=== PATIENT | male | born 1945 | race Caucasian/White ===

== ENCOUNTER 2019-07-15 22:50 | Inpatient (IN) ==
[2019-07-16] MEDS ORDERED: Ondansetron 4 MG/2 ML VIAL IVP PRN ×2 (00:45→12:43)
[2019-07-16] MEDS ORDERED: Naloxone 0.4 MG/ML INJ IVP PRN ×2 (00:45→12:43)
[2019-07-16] MEDS ORDERED: 0.9 % Sodium Chloride 1,000 ML IVC SCH ×2 (00:45→12:43)
[2019-07-16 01:53] LABS: Basophils % 0.2 %; Eosinophils # 0.1 K/mcL (0.0-0.6); Eosinophils % 0.6 %; Hemoglobin 11.2 g/dL (12.9-16.9); Immature Granulocytes % 1.2 % (0-4); Lymphocytes # 0.5 K/mcL (0.6-4.6); Lymphocytes % 3.6 %; Mean Corpuscular Hemoglobin 30.4 pg (28.0-33.3); Mean Platelet Volume 10.2 fL (9.4-12.4); Monocytes # 1.1 K/mcL (0.0-1.3); Monocytes % 7.2 %; Platelet Count 105 K/mcL (140-400); Red Blood Count 3.68 M/mcL (4.19-5.50); Red Cell Distribution Width 23.1 % (11.5-14.5); Segmented Neutrophils % 87.2 %
[2019-07-16 01:59] LABS: Neutrophils # 13.1 K/mcL (1.6-8.9)
[2019-07-16 02:04] LABS: INR 1.9; Prothrombin Time 21.7 Seconds (9.4-12.1)
[2019-07-16 02:07] LABS: Activated Partial Thrombo Time 28.9 Seconds (26.0-36.0)
[2019-07-16 02:15] LABS: Alanine Aminotransferase 75 Units/L (7-52); Albumin 2.3 g/dL (3.5-5.7); Albumin/Globulin Ratio 0.7 (1.1-2.2); Alkaline Phosphatase 1228 Units/L (34-104); Aspartate Amino Transferase 119 Units/L (13-39); BUN/Creatinine Ratio 36 (6-26); Bilirubin,Total 11.9 mg/dL (0.3-1.0); Blood Urea Nitrogen 48 mg/dL (8-23); Calcium 8.4 mg/dL (8.6-10.3); Carbon Dioxide 25 mEq/L (23-29); Chloride 99 mEq/L (98-107); Globulin 3.2 g/dL (2.4-3.5); Glucose 185 mg/dL (70-105); Magnesium 2.3 mg/dL (1.6-2.6); Osmolality,Calculated 291 (280-300); Potassium 4.6 mEq/L (3.5-5.1); Sodium 132 mEq/L (136-145); Total Protein 5.5 g/dL (6.4-8.9); eGFR For African Americans > 60 (> 60); eGFR For Non-African Americans 52 (> 60)
[2019-07-16 02:25] LABS: Platelet Estimate Slight Decrease (Normal)
[2019-07-16] MEDS ORDERED: *HR* Heparin 5,000 UNIT/ML VIAL SQ SCH ×2 (06:00→18:00)
[2019-07-16] MEDS ORDERED: MetroNIDAZOLE 500 MG/100 ML 500 MG/100 ML BAG IVPB SCH ×2 (08:00→16:00)
[2019-07-16] MEDS ORDERED: Lactulose Oral Soln 20 GM/30 ML UDC PO SCH (09:00)
[2019-07-16] MEDS ORDERED: cefTRIAXone 1,000 MG in Water for inj. (sterile) 10 ML IVP SCH (09:00)
[2019-07-16] MEDS ORDERED: Lactulose 200 GM, Sodium Chloride IRRigation 700 ML RC ONE (12:59)
[2019-07-16] MEDS ORDERED: Lactulose Oral Soln 20 GM/30 ML UDC RC SCH (15:00)
[2019-07-16 19:09] VITALS: BP 90/69
[2019-07-16] MEDS ORDERED: Morphine Sulfate 2 MG/ML SYRINGE IVP ONE (23:35)
[2019-07-16] MEDS ORDERED: Levalbuterol Neb 1.25 MG/3 ML ONE (23:49)
[2019-07-16] MEDS ORDERED: Levalbuterol Neb 1.25 MG/3 ML IH SCH (23:50)
[2019-07-16] MEDS ORDERED: Furosemide 20 MG/2 ML VIAL IVP ONE (23:58)
[2019-07-17] MEDS ORDERED: Atropine Sulfate 1% 40 DROP/2 ML BOTTLE SL PRN (00:11)
[2019-07-17] MEDS ORDERED: *HR* LORazepam Oral Conc 2 MG/ML SL PRN (00:14)
[2019-07-17] MEDS ORDERED: Scopolamine Patch 1.5 MG PATCH.TD72 TD SCH (00:45)
[2019-07-17] MEDS ORDERED: Morphine Sulfate 2 MG/ML SYRINGE IVP PRN (02:00)
[2019-07-17] MEDS ORDERED: cefTRIAXone 1,000 MG in Water for inj. (sterile) 10 ML IVP SCH (09:00)
[2019-07-17] MEDS ORDERED: Ipratropium/Albuterol Neb 3 ML IH SCH (23:30)
== END 2019-07-17 01:04 | disposition expired | DRG 441 ==
LOC: ICNU → 2ANU 07-16 15:19
PROVIDERS: ADMIT Internal Medicine; ATTEND Internal Medicine